=== PATIENT | male | born 1945 | race Caucasian/White ===

== ENCOUNTER 2022-04-23 16:05 | Emergency (ER) | payer OTHER, SELFPAY ==
[2022-04-23] VITALS (8 sets, daily range): BP systolic 153–183; BP diastolic 70–85; PULSE 61–78; RESP 16–21; TEMP 36.3; O2SAT 94–97; BMI 37.1
--- NOTE | 2022-04-23 | DI.CT.S_ITS ---
PROCEDURE: CT ANGIO HEAD AND NECK INDICATIONS: STROKE SYMTOMS TECHNIQUE: Pre-contrast 4.5 mm thick sections acquired from the foramen magnum to the vertex. After the administration of intravenous contrast, 1 mm thick sections acquired from the aortic arch through the [place] of Shields. Post-contrast 4.5 mm thick sections then re-acquired from the foramen magnum to the vertex. bzezapb-siorpkyno-lailikysop (MIP) and/or volume rendering reformats were acquired of the central intracranial vasculature and neck separately. For radiation dose reduction, the following was used: automated exposure control, adjustment of mA and/or kV according to patient size. COMPARISON: None. FINDINGS: Image quality: Excellent. BRAIN: CSF spaces: Ventricles are normal in size and shape. Basal cisterns are patent. No extra-axial fluid collections. Brain: No midline shift. No intracranial bleeds or masses. Alvarez-white matter interface appears intact. Atrophy and chronic ischemic change Skull and face: Calvarium and facial bones appear intact, without suspicious lesions. Orbits appear normal. Sinuses: Sinuses and mastoids are clear. HEAD CT ANGIOGRAPHY: Anterior circulation: No atherosclerotic calcification the cavernous portions of both internal carotid arteries noted with mild stenosis. No aneurysm.. The flow within the paired anterior cerebral arteries is normal and symmetric. The flow within the middle cerebral arteries is normal and symmetric. The anterior communicating artery is seen. No aneurysms are seen. Posterior circulation: Right vertebral artery dominance. Diminutive left vertebral artery terminates in the left posterior inferior cerebellar artery. Hypoplasia/aplasia of the left P1 FINGERER noted. The P2 segment is supplied by a widely patent posterior communicating artery. Remainder of the distal vasculature unremarkable. No aneurysms are seen. NECK CT ANGIOGRAPHY: Carotid system: The great vessels demonstrate a conventional anatomy as they arise from the aortic arch. The origins of the common carotid arteries appear patent. The common carotid arteries demonstrate normal caliber and courses. The bifurcation regions are both widely patent. The internal carotid arteries demonstrate normal calibers and courses. Posterior circulation: The origins of the vertebral arteries both appear widely patent. Right vertebral artery dominance. The more superior extracranial portions of both vertebral arteries also demonstrate normal courses and calibers. They join to form a normal appearing basilar artery. Soft tissues: Visualized neck soft tissues demonstrate no suspicious abnormalities. Bones: No suspicious bony lesions. Visualized cervical spine appears normally aligned. Degenerative disc disease and arthropathy in the cervical spine IMPRESSION: 1. No evidence of large vessel occlusion, aneurysm or vascular malformation. 2. Atherosclerotic calcification in the cavernous segments of both internal carotid arteries results in mild stenosis. No aneurysm. 3. No proximal ICA stenosis. Any quantitative measurements of stenosis were performed using NASCET criteria. Approved by: Rolando Freeman M.D. on 04/23/2022 at 16:36
--- NOTE | 2022-04-23 16:16 | DI.RAD.S_ITS ---
PROCEDURE: XR CHEST 1V INDICATIONS: Possible stroke TECHNIQUE: One view of the chest was acquired. COMPARISON: None. FINDINGS: Surgical changes and devices: None. Lungs and pleura: Minimal bilateral effusions. Mediastinum: Mediastinal contours appear normal. Heart size is normal. Bones and chest wall: No suspicious bony lesions. Overlying soft tissues appear unremarkable. IMPRESSION: No acute pulmonary process. Dictated by: Florinda Bui M.D. on 04/23/2022 at 16:42 Approved by: Florinda Bui M.D. on 04/23/2022 at 16:43
[2022-04-23 16:55] LABS: Add Manual Diff / Slide Review NO; Basophils Absolute Auto 0 /uL (0-100); Basophils Percent Auto 0.7 % (0-2); Eosinophils Absolute Auto 200 /uL (0-450); Eosinophils Percent Auto 3.2 % (2-4); Hematocrit 40.5 % (41-53); Hemoglobin 14.1 g/dL (13.5-17.5); Lymphocytes Absolute Auto 1600 /uL (1100-4500); Lymphocytes Percent Auto 23.8 % (25-40); Mean Corpuscular HGB Conc 34.8 % (30-36); Mean Corpuscular Hemoglobin 32.9 PG (26-34); Mean Corpuscular Volume 94.8 fL (80-100); Monocytes Absolute Auto 500 /uL (0-900); Neutrophils Absolute Auto 4300 /uL (1500-7000); Neutrophils Percent Auto 64.3 % (50-75); Platelet Count 163 X10^3/uL (150-400); Red Blood Cell Count 4.27 X10^6/uL (4.5-5.9); Red Cell Distribution Width 13.6 % (11.6-14.8); White Blood Cell Count 6.7 X10^3/uL (4.5-11.0)
[2022-04-23 16:56] LABS: Prothrombin Time 10.9 SECONDS (10.1-12.7)
[2022-04-23 16:59] LABS: PTT Partial Thromboplastin Tim 33 SECONDS (26-36)
[2022-04-23 17:01] LABS: Alanine Aminotransferase 24 IU/L (<50); Alkaline Phosphatase 59 U/L (38-126); Aspartate Aminotransferase 20 IU/L (17-59); BUN Creatinine Ratio 19.5 (6-22); Bilirubin Total 0.4 mg/dL (0.2-1.3); Blood Urea Nitrogen 22 mg/dL (9-20); Calcium 9.6 mg/dL (8.4-10.2); Carbon Dioxide 21 mmol/L (22-32); Chloride 102 mmol/L (98-107); Creatine Kinase 74 U/L (55-170); Estimated Glomerular Filt Rate > 60 mL/min (>60); Glucose 277 mg/dL (80-110); HEMOLYSIS < 15 (0-50); Magnesium 1.7 mg/dL (1.6-2.3); Sodium 138 mmol/L (137-145); Total Protein 7.5 g/dL (6.3-8.2)
[2022-04-23 17:13] LABS: Troponin I < 0.012 ng/mL (0.01-0.034)
[2022-04-23 17:33] LABS: Albumin 4.5 g/dL (3.5-5.0); Albumin Globulin Ratio 1.5 (1.0-2.8)
--- NOTE | 2022-04-23 19:05 | PC.NURSE ---
pt and spouse state that pt has history of these episodes for decades. he sees Dr. Taylro with [facility] in [place] for this. He is on blood thinners incase it is TIA and stroke related but neurologist also thinks these might be unusual migraines. Pt has been instructed to go to the ER anytime these episodes happen incase it is TIA/Stroke related. pt's symptoms have resolved since arriving to the ER
--- NOTE | 2022-04-23 19:41 | ED_ITS ---
HPI - Neuro Symptoms/Deficit General Chief Complaint: Neuro Symptoms/Deficit Stated Complaint: Feels like stroke/TIA Time Seen by Provider: 04/23/22 19:40 Source: patient and family Limitations: no limitations History of Present Illness HPI Narrative: This is a 77 year old male with history of [id number] diabetes, hypertension, dyslipidemia and either recurrent TIAs or his neurologist suspects maybe a migraine variant. Patient states today he woke up from a nap that started at 1:30 p.m., he woke up around 1500 and had word-finding difficulty that lasted about an hour and a half he states it slowly resolved over time he d id have some mild dizziness and he noted difficulty reading words on the TV. He denies numbness, tingling or weakness. No facial droop. His did not appreciate any thanks similar. He states episodes have happened in the past sometimes even back into high school. Patient denies chest pain, shortness of breath, no nausea or vomiting, no diarrhea constipation. He is some chronic urinary incontinence issues but nothing new. He has seen Neurology, Dr. Chew in [place] and they suspect that he may be having migraine variants. He is had MRIs in the past which he states have always been negative. He states he is had an echo in the last year. Patient is on metformin, glimepiride, Trulicity, statin, losartan and vitamin-D. He is had knee surgery, hernia repair in the rib area and a resection of his colon for a polyp that was difficult to reach in 2016. States his only allergy is lisinopril develops a cough. Denies tobacco, he drinks alcohol occasionally 2 or 3 times a month at the most. He denies any illicit. On Anticoagulants: Yes (Plavix) Related Data Allergies Allergy/AdvReac Type Severity Reaction Status Date / Time lisinopril Allergy Cough Verified 04/23/22 16:16 Review of Systems Review of Systems ROS Unobtainable: All systems reviewed & are unremarkable except as noted in HPI and below Hematologic/Lymphatic On Anticoagulants: Yes (Plavix) Patient History Social History Smoking Status: Never smoker Smoking Status: Never smoker Substance Use Type: does not use Exam Narrative Exam Narrative: GEN: well nourished, well appearing male, alert and oriented x 3, patient appears to be in mild distress. HEENT: Atraumatic, pupils are equal round reactive to light, extraocular movements are intact, nares are clear, TMs are clear with no fluid, there is no conjunctival pallor. Throat is clear without any exudates, erythema, tonsillar enlargement or uvular deviation, no facial droop HEART: Regular rate and rhythm without murmur, clicks, rubs. No carotid bruits, pulses are equal in upper and lower extremities LUNGS:Lungs clear to auscultation, no wheezes, rales, crackles, chest moves symmetrically ABD:bowel sounds normal, soft, non-tender, no guarding, rebound, rigidity, no masses noted, no hepatosplenomegaly MSCL: Non-tender, no muscle atrophy, muscles strength 5/5 upper and lower extremities, full range of motion, normal gait NEURO:CN 2-12 intact, sensation normal, finger nose finger test normal, heel maxwell test normal, romberg normal SKIN: No rash, erythema or other skin changes Initial Vital Signs Initial Vital Signs: Vital Signs Temperature 97.3 F L 04/23/22 16:12 Pulse Rate 78 04/23/22 16:12 Respiratory Rate 16 04/23/22 16:12 Blood Pressure 183/85 H 04/23/22 16:12 Pulse Oximetry 95 04/23/22 16:12 Oxygen Delivery Method 04/23/22 16:12 Course Orders Ordered: Discontinued Medications Aspirin (Aspirin 81 Mg Chew Tab) 324 mg PO NOW ONE Stop: 04/23/22 20:07 Last Admin: 04/23/22 20:41 Dose: 324 mg Documented By: RASHAUN Ondansetron HCl (Ondansetron 4 Mg/2 Ml Inj) 4 mg IV NOW PRN PRN Reason: Nausea And Vomiting Ondansetron HCl (Ondansetron 4 Mg Odt) 4 mg SL NOW PRN PRN Reason: Nausea And Vomiting Vital Signs Vital signs: Vital Signs - 8 hr 04/23/22 16:12 04/23/22 18:09 04/23/22 18:10 Temperature 97.3 F L Pulse Rate 78 65 65 Respiratory Rate 16 Blood Pressure 183/85 H Pulse Oximetry 95 94 96 Oxygen Delivery Method Room Air 04/23/22 18:10 04/23/22 18:30 04/23/22 18:30 Temperature Pulse Rate 61 Respiratory Rate 21 Blood Pressure 164/77 H 156/75 H Pulse Oximetry 97 Oxygen Delivery Method 04/23/22 19:00 04/23/22 19:00 04/23/22 19:30 Temperature Pulse Rate 65 Respiratory Rate 20 Blood Pressure 164/79 H 153/74 H Pulse Oximetry 97 Oxygen Delivery Method 04/23/22 19:30 Temperature Pulse Rate 62 Respiratory Rate 17 Blood Pressure Pulse Oximetry 96 Oxygen Delivery Method MDM - Neuro Symptoms/Deficit Lab Data Result diagrams: 04/23/22 16:32 04/23/22 16:32 Labs: Lab Results 04/23/22 04/23/22 04/23/22 Range/Units 16:32 16:32 16:32 WBC 6.7 (4.5-11.0) X10^3/uL RBC 4.27 L (4.5-5.9) X10^6/uL Hgb 14.1 (13.5-17.5) g/dL Hct 40.5 L (41-53) % MCV 94.8 (80-100) fL MCH 32.9 (26-34) PG MCHC 34.8 (30-36) % RDW 13.6 (11.6-14.8) % Plt Count 163 (150-400) X10^3/uL Neut % (Auto) 64.3 (50-75) % Lymph % (Auto) 23.8 L (25-40) % [place] % (Auto) 8.0 (3-14) % Eos % (Auto) 3.2 (2-4) % Baso % (Auto) 0.7 (0-2) % Neut # (Auto) 4300 (1814-3468) /uL Lymph # (Auto) 1600 (4551-6547) /uL [place] # (Auto) 500 (0-900) /uL Eos # (Auto) 200 (0-450) /uL Baso # (Auto) 0 (0-100) /uL PT 10.9 (10.1-12.7) SECONDS INR 1.0 (0.9-1.3) APTT 33 (26-36) SECONDS Sodium 138 (137-145) mmol/L Potassium 4.0 (3.4-5.1) mmol/L Chloride 102 (98-107) mmol/L Carbon Dioxide 21 L (22-32) mmol/L BUN 22 H (9-20) mg/dL Creatinine 1.13 (0.66-1.25) mg/dL Estimated GFR > 60 (>60) mL/min BUN/Creatinine Ratio 19.5 (6-22) Glucose 277 H (80-110) mg/dL Calcium 9.6 (8.4-10.2) mg/dL Magnesium 1.7 (1.6-2.3) mg/dL Total Bilirubin 0.4 (0.2-1.3) mg/dL AST 20 (17-59) IU/L ALT 24 (<50) IU/L Alkaline Phosphatase 59 (38-126) U/L Total Creatine Kinase 74 (55-170) U/L CK-MB (CK-2) TNP CK-MB (CK-2) Rel Index TNP Troponin I < 0.012 (0.01-0.034) ng/mL Total Protein 7.5 (6.3-8.2) g/dL Albumin 4.5 (3.5-5.0) g/dL Globulin 3.0 (1.7-4.1) g/dL Albumin/Globulin Ratio 1.5 (1.0-2.8) Point of Care Testing Glucose POC 295 Imaging Data CTA - brain/neck: Radiologist's Impression: Bartolo Rao??77??M??1945 ? Allergy/Adv: lisinopril Close Chest X-Ray (Signed) Florinda Bui - 04/23/22 Head/Neck CTA (Signed) Rolando Freeman - 04/23/22 [place] [address] CT Scan Report Signed Patient: Bartolo Rao MR#: [id number] : 1945 Acct:[id number] Age/Sex: 77 / M Date of Service: 04/23/22 Loc: ED Accession Number: [id number] ?? Procedure: CT angio head and neck Ordering Provider: *Germania,ED*? PROCEDURE:? CT ANGIO HEAD AND NECK ? INDICATIONS:? STROKE SYMTOMS ? TECHNIQUE:? Pre-contrast 4.5 mm thick sections acquired from the foramen magnum to the vertex.? After the administration of intravenous contrast, 1 mm thick sections acquired from the aortic arch through the [place] of Shields.? Post-contrast 4.5 mm thick sections then re- acquired from the foramen magnum to the vertex.? vjxnnyw-kkaxdivsi-njhipwictf (MIP) and/or volume rendering reformats were acquired of the central intracranial vasculature and neck separately. For radiation dose reduction, the following was used:? automated exposure control, adjustment of mA and/or kV according to patient size.? ? COMPARISON:? None. ? FINDINGS:? Image quality:? Excellent.? ? BRAIN:? CSF spaces:? Ventricles are normal in size and shape.? Basal cisterns are pa tent.? No extra-axial fluid collections.? ? Brain:? No midline shift.? No intracranial bleeds or masses.? Alvarez-white matter interface appears intact.? Atrophy and chronic ischemic change ? Skull and face:? Calvarium and facial bones appear intact, without suspicious lesions.? Orbits appear normal.? ? Sinuses:? Sinuses and mastoids are clear.? ? HEAD CT ANGIOGRAPHY:? Anterior circulation:? No atherosclerotic calcification the cavernous portions of both internal carotid arteries noted with mild stenosis.? No aneurysm..? The flow within the paired anterior cerebral arteries is normal and symmetric.? The flow within the middle cerebral arteries is normal and symmetric.? The anterior communicating artery is seen.? No aneurysms are seen.? ? Posterior circulation:? Right vertebral artery dominance.? Diminutive left vertebral artery terminates in the left posterior inferior cerebellar artery.? H ypoplasia/aplasia of the left P1 TENTERING MACHINE OFF BEARER noted. The P2 segment is supplied by a widely patent posterior communicating artery. Remainder of the distal vasculature unremarkable.? No aneurysms are seen.? ? NECK CT ANGIOGRAPHY:? Carotid system:? The great vessels demonstrate a conventional anatomy as they a rise from the aortic arch.? The origins of the common carotid arteries appear patent.? The common carotid arteries demonstrate normal caliber and courses.? The bifurcation regions are both widely patent.? The internal carotid arteries demonstrate normal calibers and courses.? ? Posterior circulation:? The origins of the vertebral arteries both appear widely patent.? Right vertebral artery dominance.? The more superior extracranial portions of both vertebral arteries also demonstrate normal courses and calibers.? They join to form a normal appearing basilar artery.? ? Soft tissues:? Visualized neck soft tissues demonstrate no suspicious abnormalities.? ? Bones:? No suspicious bony lesions.? Visualized cervical spine appears normally aligned.? Degenerative disc disease and arthropathy in the cervical spine ? ? IMPRESSION:? ? 1. No evidence of large vessel occlusion, aneurysm or vascular malformation. ? 2. Atherosclerotic calcification in the cavernous segments of both internal carotid arteries results in mild stenosis.? No aneurysm. ? 3. No proximal ICA stenosis.? ? Any quantitative measurements of stenosis were performed using NASCET criteria.? Approved by: Rolando Freeman M.D. on 04/23/2022 at 16:36? Chest x-ray: Radiologist's Impression: Bartolo Rao??77??M??1945 ? Allergy/Adv: lisinopril Close Chest X-Ray (Signed) Florinda Bui - 04/23/22 Head/Neck CTA (Signed) Rolando Freeman - 04/23/22 [place] [address] XRay Report Signed Patient: Bartolo Rao MR#: [id number] : 1945 Acct:[id number] Age/Sex: 77 / M Date of Service: 04/23/22 Loc: ED Accession Number: [id number] ?? Procedure: XR chest 1V Ordering Provider: Christina Cartagena D.O. PROCEDURE:? XR CHEST 1V ? INDICATIONS:? Possible stroke ? TECHNIQUE:? One view of the chest was acquired.? ? COMPARISON:? None. ? FINDINGS:? ? Surgical changes and devices:? None.? ? Lungs and pleura:? Minimal bilateral effusions. ? Mediastinum:? Mediastinal contours appear normal.? Heart size is normal.? ? Bones and chest wall:? No suspicious bony lesions.? Overlying soft tissues appear unremarkable.? ? IMPRESSION:? No acute pulmonary process. ? ? Dictated by: Florinda Bui M.D. on 04/23/2022 at 16:42 ? ? Approved by: Florinda Bui M.D. on 04/23/2022 at 16:4 ECG Data Attestation: I personally reviewed and interpreted this ECG as follows: Prior ECG tracings: not available for review Interpretation: Sinus rhythm with first-degree AV block rate of 63, LA 336, QRS 88 [address]TC 19. No acute ST elevation or depression. No prior. MDM Narrative Medical decision making narrative: This is a 77-year-old male who presents with complaint of TIA like symptoms symptoms had resolved just prior to or upon arrival to the emergency department. Patient has had multiple episodes in the past he is never had stroke found on MRI according to patient has seen Neurology and based on his past presentations and timeline they have suspected a migraine variant. He does take Plavix daily but no other aspirin. He has had dual plan antiplatelet therapy in the past he is unsure why he is on Plavix and not aspirin. Patient patient and I discussed I would recommend his head CT angio, chest x-ray, CBC, CMP coags and troponin are all negative. Creatinine 1.13 but appears fairly baseline. Glucose is 277 patient notes he has not been as well controlled lately. He does not have any signs of DKA or hyperosmolar symptoms. Discussed with patient and family I recommend observation, MRI and echo as well as workup for TIA. They are reluctant to do, they do have good follow-up with Neurology and would like to return home. We discussed at least doing aspirin for 3 weeks with his Plavix but touch base with his neurologist on Tuesday to see if they should continue this. All questions answered. We did discuss return precautions and risks. Discharge Plan Departure Patient Disposition: Home Clinical Impression: TIA (transient ischemic attack) Instructions: DI for Transient Ischemic Attack Activity Restrictions/Additional Instructions: You may have had a TIA today, it would be very appropriate free to stay overnight and have an MRI and further workup but as you see Neurology and you discussed that they suspect these may be a migraine variant that is a possibility. I would recommend taking aspirin 81 mg with her Plavix for at least 3 weeks. Talk with your neurologist to decide if you should continue this or not. Please return for severe headaches, new altered mental status, difficulty with speech, numbness tingling or weakness, facial droop, dizziness, difficulty ambulating or other new or concerning changes. Referrals: Zoran Marcos PA-C [Primary Care Provider] - Stand Alone Forms: Patient Portal/API
[2022-04-23] MEDS: ASPIRIN 81 MG CHEW TAB 324 MG PO (20:41)
== END 2022-04-23 20:48 | disposition home or self-care (01) ==
PROVIDERS: Emergency Medicine; Emergency Provider Emergency Medicine; PCP Student in an Organized Health Care Education/Training Program
DX: G45.9 Transient cerebral ischemic attack, unspecified (principal); Z79.01 Long term (current) use of anticoagulants
CPT/HCPCS: 36415; 70496; 70498; 71045; 80053; 82550; 82962; 83735; 84484; 85025; 85610; 85730; 93005; 93010; 99284; Q9967